=== PATIENT | male | born 1950 | race Caucasian/White ===

== ENCOUNTER 2025-03-08 13:26 | Outpatient (CLI) | payer MEDICARE ==
[2025-03-08 13:59] LABS: Estimated GFR - POC 49.0
== END 2025-03-08 13:27 | disposition home or self-care (01) ==
LOC: CSHMRI 13:26
PROVIDERS: ATTEND Specialist
DX: R42 Dizziness and giddiness (principal)
CPT/HCPCS: 70553; 82565